=== PATIENT | female | born 1970 | race African-American/Black ===

== ENCOUNTER 2019-06-11 02:49 | Emergency (ER) | payer OTHER ==
[~2019-06-11] VITALS: Ht 160 cm; Wt 94.3 kg
[~2019-06-11 02:49] MED LIST: BACTRIM DS TAB1 EACH PO; CEPHALEXIN 500500 M3 PO; DIFLUCAN150 MG PO; NOHOMEMEDICATIONS
[2019-06-11 04:48] LABS: URINE BILIRUBIN NEGATIVE (Negative); URINE BLOOD 1+ (Negative); URINE CLARITY CLEAR; URINE COLOR YELLOW; URINE GLUCOSE-RANDOM NEGATIVE (Negative); URINE KETONES NEGATIVE (Negative); URINE LEUKOCYTES-REFLEX NEGATIVE (Negative); URINE NITRITE-REFLEX NEGATIVE (Negative); URINE PROTEIN NEGATIVE (Negative); URINE SPECIFIC GRAVITY >= 1.030 (1.005-1.030); URINE UROBILINOGEN 0.2 E.U./dl (0.2-1.0)
[2019-06-11 05:56] LABS: INFLUENZA A ANTIGEN Negative (Negative); INFLUENZA B ANTIGEN Negative (Negative)
[2019-06-11] MEDS ORDERED: PRINIVIL10 MG PO (06:21)
[2019-06-11] MEDS ORDERED: PROMETH-CODEIN 65 ML PO (06:21)
[2019-06-11] MEDS ORDERED: LOPRESSOR50 MG PO (06:21)
[2019-06-11] MEDS ORDERED: CATAPRES0.1 MG PO (06:22)
[2019-06-11 06:23] LABS: SQUAMOUS >10 Many /LPF (0-3)
[2019-06-11 06:24] LABS: URINE WBC-REFLEX 0-5 Rare /HPF (0-5)
[2019-06-11 06:25] LABS: BACTERIA-REFLEX >30 Many /HPF (None Seen); CASTS None Seen /LPF (None Seen); MUCUS 0-3 Light strn/LPF (None Seen); URINE RBC 3-10 Few /HPF (0-2)
[2019-06-11 06:26] LABS: CALCIUM OXALATE 4-10 Moderate /LPF (None Seen)
[2019-06-11 06:34] VITALS: BP 158/95
== END 2019-06-11 06:35 | disposition home or self-care (01) ==
LOC: M.ERS 02:49
PROVIDERS: Emergency Medicine
DX: J06.9 Acute upper respiratory infection, unspecified (principal); I10 Essential (primary) hypertension; Z90.710 Acquired absence of both cervix and uterus; Z90.49 Acquired absence of other specified parts of digestive tract; Z79.899 Other long term (current) drug therapy

== ENCOUNTER 2020-06-16 15:04 | Emergency (ER) | payer OTHER ==
[~2020-06-16] VITALS: Ht 160 cm; Wt 111.1 kg
[~2020-06-16 15:04] MED LIST changes: +CATAPRES0.1 MG PO; +LOPRESSOR50 MG PO; +PRINIVIL10 MG PO; +PROMETH-CODEIN 65 ML PO
[2020-06-16 15:12] VITALS: BP 205/134
[2020-06-16 16:06] LABS: ABSOLUTE EOSINOPHILS 0.1 thou/uL (0.0-0.7); ABSOLUTE LYMPHOCYTES 2.1 thou/uL (0.8-5.3); ABSOLUTE MONOCYTES 0.2 thou/uL (0.0-1.2); ABSOLUTE NEUTROPHILS 1.5 thou/uL (1.6-8.1); BASOPHILS 1.1 %; EOSINOPHILS 1.5 %; HEMATOCRIT 43.5 % (37.0-47.0); HEMOGLOBIN 14.7 gm/dL (12.0-15.0); LYMPHOCYTES 52.3 %; MCH 28.9 pg (26.0-34.0); MCHC 33.9 g/dL (28.0-37.0); MCV 85.3 fL (80.0-100.0); MONOCYTES 5.9 %; MPV 7.5 fl. (7.2-11.1); NUCLEATED RBCS 0 /100WBC; PLATELET COUNT* 341 thou/uL (150-400); POLYS 39.2 %; RDW-CV 13.6 % (10.5-14.5); WBC 3.9 thou/uL (4.0-11.0)
[2020-06-16] MEDS ORDERED: NABUMETONE 750750 M1 PO (16:19)
[2020-06-16] MEDS ORDERED: DOXYCYCLINE 10100 MG PO (16:19)
[2020-06-16 16:27] LABS: CALCIUM 8.9 mg/dL (8.5-10.1); CREATININE 0.8 mg/dL (0.6-1.3); POTASSIUM 3.9 mmol/L (3.5-5.1)
[2020-06-16 16:32] LABS: ALBUMIN 3.5 g/dL (3.4-5.0); TOTAL BILIRUBIN 0.5 mg/dL (<0.1-1.0); TOTAL PROTEIN 7.3 g/dL (6.4-8.2)
== END 2020-06-16 16:43 | disposition home or self-care (01) ==
LOC: M.ERS 15:04
PROVIDERS: Nurse Practitioner Family
DX: A59.01 Trichomonal vulvovaginitis (principal); R10.2 Pelvic and perineal pain; Z90.710 Acquired absence of both cervix and uterus; Z90.49 Acquired absence of other specified parts of digestive tract; Z79.899 Other long term (current) drug therapy